=== PATIENT | female | born 1990 | race Two or more races ===

== ENCOUNTER 2024-05-06 06:45 | Day surgery (SDC) | payer MEDICAID, SELFPAY ==
[2024-05-05 08:42] VITALS: BMI 26.6
[2024-05-05 09:36] LABS: Basophils % (Auto) 1 % (0-2.5); Eosinophils # (Auto) 0.2 Thou/mm3 (0.0-0.5); Eosinophils % (Auto) 4 % (0-10); Hemoglobin 13.2 g/dL (12.0-16.0); Immature Granulocytes % (Auto) 1 % (0-0); Immature Granulocytes Auto 0.04 Thou/mm3 (0.00-0.00); Lymphocytes # (Auto) 1.7 Thou/mm3 (1.0-4.8); Lymphocytes % (Auto) 37 % (10-50); Mean Corpuscular HGB Conc 32.2 g/dl (31.0-37.0); Mean Corpuscular Hemoglobin 28.4 pg (25.0-35.0); Mean Corpuscular Volume 88 fL (80-100); Monocytes # (Auto) 0.3 Thou/mm3 (0.0-0.8); Monocytes % (Auto) 7 % (0-12); Neutrophils # (Auto) 2.2 Thou/mm3 (1.8-7.7); Neutrophils % (Auto) 50 % (37-80); Nucleated Red Blood Cell % 0 /100 WBC (0); Platelet Count 299 Thou/mm3 (140-440); RDW Standard Deviation 45.1 fL (36.4-46.3); Red Blood Count 4.64 Miln/mm3 (4.00-5.20); White Blood Count 4.5 Thou/mm3 (3.6-11.0)
[2024-05-05 09:51] LABS: HCG,Qualitative Serum Negative
[2024-05-05 09:57] LABS: HIV (1&2) Antibody Rapid Non-Reactive
[2024-05-05 10:42] LABS: Hepatitis A Antibody IgM Non Reactive (Non React); Hepatitis B Core Antibody IgM Non Reactive (Non React); Hepatitis B Surface Antigen Non Reactive (Non React); Hepatitis C Antibody Non Reactive (Non React)
[2024-05-06] VITALS (8 sets, daily range): BP systolic 127–149; BP diastolic 76–99; PULSE 72–93; RESP 16–20; TEMP 36.1–36.7; O2SAT 99–100; BMI 26.4
--- NOTE | 2024-05-06 10:26 | ESHP_ITS ---
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 HERNANDEZ is a 34 year old female Para 4 all previous vaginal delivery is here for bilateral laparoscopic salpingectomy. 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 Vital Signs Temp Pulse Resp BP Pulse Ox 98.1 F 72 19 149/99 H 100 05/06/24 07:56 05/06/24 07:56 05/06/24 07:56 05/06/24 07:56 05/06/24 07:56 Constitutional Constitutional: no acute distress Routine HEENT Exam Head: Present normocephalic and atraumatic Eye: Present EOMI and PERRL ENT: Present mucous membranes moist Routine Neck Exam Neck: Present supple and trachea midline Routine Respiratory Exam Respiratory: Present chest non-tender, lungs clear, normal breath sounds and no resp distress Routine Cardiovascular Exam Cardiovascular: Present RRR Routine Abdominal Exam Abdominal: Present soft and normoactive bowel sounds Routine Extremities Exam Extremities: Present full ROM Routine Skin Exam Skin: Present intact and dry Routine Neurological Exam Neurological: Present alert, oriented X3 and CN II-XII intact Routine Psychiatric Exam Psychiatric: Present normal affect and normal thought process 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
--- NOTE | 2024-05-06 11:30 | SUR.PHASEI ---
1130 Patient arrived to recovery resting comfortably in [facility], on oxygen 8L via oxy mask with an oral airway in place, breathing unlabored, vital signs stable, dressing intact to abdomen; dermabond and to vaginal area; peripad, no bleeding noted, lung sounds clear upon auscultation, bilateral radial pulses present when palpated, report received from Martha STOVER/Jackie STOVER and Dr. Pascual
--- NOTE | 2024-05-06 12:10 | SUR.PHASEII ---
1210 Report given to Abigail Gary RN
--- NOTE | 2024-05-06 12:35 | SUR.PHASEII ---
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
--- NOTE | 2024-05-07 15:58 | ESOP_ITS ---
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 General anesthesia was given without any complications.? A time out was given confirming Donna Stallings was undergoing the following, procedure,allergies, and surgeon.The patient was positioned in the dorsal lithotomy position. The bladder was emptied. The perineum was prepped with Betadine solution per routine.The abdomen was prepped with DuraPrep. Attention was then focused to the vagina.? A sponge placed in a ring forceps was placed in the posterior fornix and used as a uterine manipulator.? The surgeon then changed gloves to continue proper sterile technique. Attention was diverted to the abdomen. An umblical incision was first made, Two towel clips were placed lateral to the umbilicus in order to elevate the abdominal wall.? A hemostat was used to assess the depth to the fascia. While applying countertraction by lifting the towel clips, a Veress needle was used to enter the peritoneal cavity, a initial abdominal pressure of 12 mmHg was noted upon entry. Veress needle used for initial pneumoperitoneum establishment. 5 mm port used for the direct trocar entry the abdomen was then insufflated with CO2 gas to 15mmHg, under the opti-view system was advanced into the peritoneal entry.? The Right lower quadrant was evaluated and a 5-mm incision was made . 5-mm trocar placed under camera surveillance.? Left side evaluated and a 5mm trocar inserted under optiview surveillance. On observation: Normal anatomy with bilateral ovaries and tubes no peritoneal pathology identified. Using a laparoscopic Kyle grasper, gently right tube at the fimbrial end was picked up. Gradually , her right and left tube was from the mesosalpinx using Enseal device. Same repeated on the other side bilateral salpingectomy done, hemostasis ensured. All the bowel at the initial trocar entry point was examined no entry injuries were noted Estimated blood loss (ml): 1 Surgical staff Operation Date: 05/06/24 09:00 Case Staff Anesthesiologist: Dirk Pascual grain i farmworker: Jaja Mello Diagnosis Problem List Completed Was Problem List Reviewed/Reconciled?: Yes
== END 2024-05-06 12:35 | disposition home or self-care (01) ==
PROVIDERS: PCP Family Medicine; Referring Provider Student in an Organized Health Care Education/Training Program; Visit Provider Student in an Organized Health Care Education/Training Program
PROC: (CPT 58720; principal; 2024-05-06 08:45)
DX: Z30.2 Encounter for sterilization (principal)
CPT/HCPCS: 58661; 36415; 80074; 84703; 85025; 86703; 86850; 86900; 86901; A4217; A4649; J1100; J1885; J2250; J2405; J2704; J3010; J3490; J1920